=== PATIENT | female | born 1945 | race Caucasian/White ===

== ENCOUNTER 2017-10-24 11:49 | Observation (INO) | payer MEDICARE ==
[~2017-10-24] VITALS: Ht 162.6 cm; Wt 66.0 kg
[~2017-10-24 11:49] MED LIST: ACET-38 PO; ASCO500C15 PO; ASPI-1 PO; CALC-855 PO; CHOL10002 PO; CYAN-19 PO; HYDR25TA4 PO; IBUP-1984 PO; LOSA50TA37 PO; METO50TA16 PO; PANT40TA4 PO; POTA10CA44 PO; RESV250C2 PO
[2017-10-24 12:30] LABS: BASOPHILS % (AUTO) 0.9 % (0-1); EOSINOPHILS # (AUTO) 0.1 X10'3 (0-0.9); EOSINOPHILS % (AUTO) 2.9 % (0-6); HEMATOCRIT 37.7 % (35.0-45.0); HEMOGLOBIN 12.9 g/dl (12.0-16.0); LYMPHOCYTES % (AUTO) 23.7 % (21-51); MEAN CORPUSCULAR HEMOGLOBIN 32.9 PG (27.0-31.0); MEAN CORPUSCULAR HGB CONC 34.3 % (33.0-36.5); MEAN PLATELET VOLUME 6.9 FL (7.4-10.4); MONOCYTES # (AUTO) 0.6 X10'3 (0-0.9); MONOCYTES % (AUTO) 13.7 % (2-12); NEUTROPHILS # (AUTO) 2.6 X10'3 (1.8-7.7); NEUTROPHILS % (AUTO) 58.8 % (42-75); PLATELET COUNT 256 X10'3 (140-440); RED BLOOD COUNT 3.92 X10'6 (4.20-5.60); RED CELL DISTRIBUTION WIDTH 13.1 % (11.5-14.5); WHITE BLOOD COUNT 4.4 X10'3 (4.5-11.0)
[2017-10-24 12:40] LABS: PARTIAL THROMBOPLASTIN TIME 25 SECONDS (22-32); PROTHROMBIN TIME 10.2 SECONDS (9.0-12.0)
[2017-10-24 12:50] LABS: ALANINE AMINOTRANSFERASE 35 U/L (12-78); ALBUMIN 3.6 G/DL (3.4-5.0); ALBUMIN/GLOBULIN RATIO 1.2 (1.1-1.5); ALKALINE PHOSPHATASE 57 IU/L (46-116); ANION GAP 6 (8-16); ASPARTATE AMINO TRANSFERASE 26 U/L (10-37); BILIRUBIN,TOTAL 0.7 MG/DL (0.1-1.0); BLOOD UREA NITROGEN 13 MG/DL (7-18); BUN/CREATININE RATIO 12.7 (6.6-38.0); CALCIUM 8.9 MG/DL (8.5-10.1); CHLORIDE 98 MMOL/L (99-107); CREATININE 1.02 MG/DL (0.40-0.90); GLUCOSE 104 MG/DL (70-104); POTASSIUM 3.6 MMOL/L (3.5-5.1); SODIUM 134 MMOL/L (135-145); TOTAL CARBON DIOXIDE 29.7 MMOL/L (24-32); TOTAL PROTEIN 6.7 G/DL (6.4-8.2); eGFR 54 ML/MIN
[2017-10-24 12:53] LABS: MAGNESIUM 1.6 MG/DL (1.5-2.4)
[2017-10-24] MEDS ORDERED: AMOX-580 PO (13:19)
[2017-10-24] MEDS ORDERED: TEMA30CA5 PO (13:20)
[2017-10-24] MEDS ORDERED: ALPR-624 PO (13:20)
[2017-10-24] MEDS ORDERED: normal saline 1000ml 1,000 ML IV SCH (13:49)
[2017-10-24] MEDS ORDERED: mag hydrox/Alum hydrox/simeth 30ml oral suspension PO PRN (13:50)
[2017-10-24] MEDS ORDERED: acetaminophen 325mg tablet PO PRN ×2 (13:50)
[2017-10-24] MEDS ORDERED: ondansetron/PF 4mg/2ml inj IV PRN (13:50)
[2017-10-24] MEDS ORDERED: magnesium hydroxide 30ml (MOM) UD suspension PO PRN (13:50)
[2017-10-24] MEDS ORDERED: ibuprofen tablet 400 MG TABLET PO PRN (14:05)
[2017-10-24] MEDS ORDERED: temazepam 15mg capsule PO PRN (14:20)
[2017-10-24 16:30] VITALS: BP 129/70
[2017-10-24 19:00] VITALS: BP 124/61
[2017-10-24] MEDS ORDERED: ALPRAZolam 0.25mg tablet PO PRN (21:00)
[2017-10-24] MEDS: metoprolol tartrate 50mg tablet PO SCH (21:06)
[2017-10-24] MEDS: temazepam 15mg capsule PO PRN ×2 (21:06→22:51)
[2017-10-24 23:00] VITALS: BP 119/70
[2017-10-25 04:56] LABS: EOSINOPHILS # (AUTO) 0.1 X10'3 (0-0.9); EOSINOPHILS % (AUTO) 1.9 % (0-6); HEMATOCRIT 35.4 % (35.0-45.0); LYMPHOCYTES # (AUTO) 1.4 X10'3 (1.1-4.8); MEAN CORPUSCULAR HEMOGLOBIN 32.8 PG (27.0-31.0); MEAN CORPUSCULAR HGB CONC 33.8 % (33.0-36.5); MEAN CORPUSCULAR VOLUME 96.8 FL (78-98); MEAN PLATELET VOLUME 7.3 FL (7.4-10.4); MONOCYTES # (AUTO) 0.5 X10'3 (0-0.9); MONOCYTES % (AUTO) 11.1 % (2-12); NEUTROPHILS # (AUTO) 2.5 X10'3 (1.8-7.7); PLATELET COUNT 228 X10'3 (140-440); RED BLOOD COUNT 3.66 X10'6 (4.20-5.60); RED CELL DISTRIBUTION WIDTH 13.5 % (11.5-14.5); WHITE BLOOD COUNT 4.6 X10'3 (4.5-11.0)
[2017-10-25 05:16] LABS: ALBUMIN 3.2 G/DL (3.4-5.0); ANION GAP 7 (8-16); BLOOD UREA NITROGEN 11 MG/DL (7-18); BUN/CREATININE RATIO 13.8 (6.6-38.0); CALCIUM 8.6 MG/DL (8.5-10.1); CHLORIDE 103 MMOL/L (99-107); CHOL/HDL RATIO 1.6 (0.00-4.99); CHOLESTEROL 146 MG/DL (0-200); GLUCOSE 103 MG/DL (70-104); HDL CHOLESTEROL 90 MG/DL (35-60); LDL CHOLESTEROL 50 MG/DL (50-100); POTASSIUM 3.1 MMOL/L (3.5-5.1); SODIUM 137 MMOL/L (135-145); TOTAL CARBON DIOXIDE 27.1 MMOL/L (24-32); TRIGLYCERIDES 20 MG/DL (20-135); eGFR 71 ML/MIN
[2017-10-25 06:00] VITALS: BP 123/67
[2017-10-25] MEDS: metoprolol tartrate 50mg tablet PO SCH (08:00)
[2017-10-25] MEDS ORDERED: potassium chloride 10mEq ER tablet PO SCH (08:00)
[2017-10-25] MEDS ORDERED: HYDROchlorothiazide 25mg tablet PO SCH (08:00)
[2017-10-25] MEDS ORDERED: calcium carbonate/vitamin D3 tablet PO SCH (08:00)
[2017-10-25] MEDS ORDERED: losartan 50mg tablet PO SCH (08:00)
[2017-10-25] MEDS ORDERED: pantoprazole 40mg Tablet.DR PO SCH (08:00)
[2017-10-25] MEDS ORDERED: cyanocobalamin 500mcg tablet PO SCH (08:00)
[2017-10-25] MEDS ORDERED: potassium Cl 20 mEq SR tablet PO PRN (08:40)
[2017-10-25] MEDS ORDERED: potassium Cl 40MEQ/NS 500ml 500 ML IV PRN ×2 (08:40)
[2017-10-25] MEDS: potassium Cl 20 mEq SR tablet PO PRN ×2 (09:00→12:50)
[2017-10-25 11:00] VITALS: BP 157/66
== END 2017-10-25 13:00 | disposition home or self-care (01) ==
LOC: ER 11:50 → ED HOLD 13:49 → EDBEDREQ 15:49 → PCU 3S 16:48
PROVIDERS: ADMIT Hospitalist; ATTEND Hospitalist
DX: R07.89 Other chest pain (principal); R06.02 Shortness of breath; E87.1 Hypo-osmolality and hyponatremia; I35.1 Nonrheumatic aortic (valve) insufficiency; I34.0 Nonrheumatic mitral (valve) insufficiency; I07.1 Rheumatic tricuspid insufficiency; I37.1 Nonrheumatic pulmonary valve insufficiency; I10 Essential (primary) hypertension; I48.91 Unspecified atrial fibrillation; J44.9 Chronic obstructive pulmonary disease, unspecified; R42 Dizziness and giddiness; Z96.652 Presence of left artificial knee joint
CPT/HCPCS: 36415; 71045; 80048; 80053; 80061; 83735; 83880; 84484; 85025; 85610; 85730; 87070; 93306; 96360; 96361; 99285; G0378; J7030

== ENCOUNTER → 2022-01-12 | Emergency (ER) | payer MEDICARE ==
[~2022-01-12] VITALS: Ht 162.6 cm; Wt 65.0 kg
[~2022-01-12] MED LIST changes: +ALPR-624 PO; -ASCO500C15 PO; -ASPI-1 PO; -CALC-855 PO; -CYAN-19 PO; +CYAN-51 PO; -IBUP-1984 PO; -LOSA50TA37 PO; +LOSA50TA64 PO; -PANT40TA4 PO; +PANT40TA54 PO; -RESV250C2 PO; +TEMA30CA5 PO
[2022-01-12 17:39] VITALS: BP 123/77
== END | disposition home or self-care (01) ==
LOC: ER 16:09
DX: S60.211A Contusion of right wrist, initial encounter (principal); I11.9 Hypertensive heart disease without heart failure; J45.909 Unspecified asthma, uncomplicated; J44.9 Chronic obstructive pulmonary disease, unspecified; K21.9 Gastro-esophageal reflux disease without esophagitis; Z98.890 Other specified postprocedural states; Z88.8 Allergy status to other drugs, medicaments and biological substances; Z79.899 Other long term (current) drug therapy; W18.39XA Other fall on same level, initial encounter; Y93.89 Activity, other specified; Y92.89 Other specified places as the place of occurrence of the external cause; Y99.8 Other external cause status
CPT/HCPCS: 29125; 73110; 99284; A4565; A6449

== ENCOUNTER 2022-08-13 12:51 | Inpatient (IN) | payer MEDICARE, OTHER ==
[~2022-08-13] VITALS: Ht 162.6 cm; Wt 65.5 kg
[~2022-08-13 12:51] MED LIST changes: -POTA10CA44 PO; +POTA10CA45 PO
--- NOTE | 2022-08-13 13:05 | NUR ---
TO CT VIA [facility]
[2022-08-13 13:36] LABS: APTT 24 SECONDS (22-32)
[2022-08-13 13:37] LABS: ALANINE AMINOTRANSFERASE 26 U/L (12-78); ALBUMIN 3.8 G/DL (3.4-5.0); ALBUMIN/GLOBULIN RATIO 1.1 (1.1-1.5); ALKALINE PHOSPHATASE 59 IU/L (46-116); ANION GAP 6 (8-16); ASPARTATE AMINO TRANSFERASE 21 U/L (10-37); BILIRUBIN,TOTAL 0.4 MG/DL (0.1-1.0); BLOOD UREA NITROGEN 28 MG/DL (7-18); BUN/CREATININE RATIO 27.5 (10.0-20.0); CALCIUM 9.4 MG/DL (8.5-10.1); CHLORIDE 105 MMOL/L (99-107); CREATININE 1.02 MG/DL (0.40-0.90); GLUCOSE 102 MG/DL (70-104); POTASSIUM 4.7 MMOL/L (3.5-5.1); SODIUM 138 MMOL/L (135-145); TOTAL PROTEIN 7.2 G/DL (6.4-8.2); eGFR 53 ML/MIN
--- NOTE | 2022-08-13 14:15 | NUR ---
dr arrington to bedside. pt level 1 stroke
[2022-08-13] MEDS ORDERED: iohexol 350MG/ML 100ml bottle IV ONE (14:17)
[2022-08-13 14:34] LABS: BASOPHILS # (AUTO) 0.1 X10'3 (0-0.2); BASOPHILS % (AUTO) 0.9 % (0-1); EOSINOPHILS # (AUTO) 0.2 X10'3 (0-0.9); EOSINOPHILS % (AUTO) 4.4 % (0-6); HEMATOCRIT 36.5 % (35.0-45.0); HEMOGLOBIN 12.1 g/dl (12.0-16.0); LYMPHOCYTES # (AUTO) 1.3 X10'3 (1.1-4.8); MEAN CORPUSCULAR HEMOGLOBIN 31.9 PG (27.0-31.0); MEAN CORPUSCULAR HGB CONC 33.2 g/dL (33.0-36.5); MEAN CORPUSCULAR VOLUME 96.1 FL (78-98); MEAN PLATELET VOLUME 7.7 FL (7.4-10.4); MONOCYTES # (AUTO) 0.6 X10'3 (0-0.9); MONOCYTES % (AUTO) 11.1 % (2-12); NEUTROPHILS # (AUTO) 3.4 X10'3 (1.8-7.7); NEUTROPHILS % (AUTO) 60.6 % (42-75); PLATELET COUNT 271 X10'3 (140-440); RED BLOOD COUNT 3.79 X10'6 (4.20-5.60); RED CELL DISTRIBUTION WIDTH 12.9 % (11.5-14.5); WHITE BLOOD COUNT 5.7 X10'3 (4.5-11.0)
--- NOTE | 2022-08-13 14:34 | NUR ---
Arrived for a level 1 stroke alert to bed #15 and pt was still at CT. When she arrived back to her room I did assessment and did not find any specefic findings. She said she still feels a little slow in speech and not quite back to normal. Telemedicine machine is in room ready for evaluation.
--- NOTE | 2022-08-13 14:40 | NUR ---
Stroke RN at bedside.
--- NOTE | 2022-08-13 14:55 | NUR ---
Around this time Teleneurology eval was done and pt gave permission for evaluation. Dr. Stein will talt to ER doctor about his reommendations.
--- NOTE | 2022-08-13 15:23 | NUR ---
Report given to Allison about my documentation and the findings of CTA report and CT. She passed her swallow evaluation too.
[2022-08-13] MEDS ORDERED: LORazepam 2 mg/ml vial IV ONE (15:50)
[2022-08-13] MEDS ORDERED: aspirin 81mg tab.chew PO ONE (15:55)
[2022-08-13] MEDS ORDERED: clopidogrel 300mg tablet PO ONE (16:00)
[2022-08-13] MEDS ORDERED: ondansetron/PF 4mg/2ml inj IV PRN (16:00)
[2022-08-13] MEDS ORDERED: mag hydrox/Alum hydrox/simeth 30ml oral suspension PO PRN (16:00)
[2022-08-13] MEDS ORDERED: acetaminophen 325mg tablet PO PRN (16:00)
[2022-08-13] MEDS ORDERED: magnesium hydroxide 30ml (MOM) UD suspension PO PRN (16:00)
[2022-08-13] MEDS ORDERED: morphine 2 MG/ML inj. syringe IV PRN ×2 (16:00)
[2022-08-13 16:51] LABS: CHOL/HDL RATIO 1.7 (0.00-4.99); CHOLESTEROL 171 MG/DL (0-200); HDL CHOLESTEROL 100 MG/DL (35-60); LDL CHOLESTEROL 60 MG/DL (50-100)
[2022-08-13 17:18] LABS: TRIGLYCERIDES < 15 MG/DL (20-135)
[2022-08-13] MEDS ORDERED: SPIR25TA5 PO (17:49)
[2022-08-13] MEDS ORDERED: LOP12.5T PO (17:49)
--- NOTE | 2022-08-13 19:28 | NUR ---
mri screening sheet faxed
[2022-08-13 21:35] VITALS: BP 145/83
[2022-08-13] MEDS: apixaban 5mg tablet PO SCH (22:00)
[2022-08-13] MEDS: docusate sod 100mg capsule PO SCH (22:01)
[2022-08-14] VITALS (8 sets, daily range): BP systolic 122–172; BP diastolic 71–94
[2022-08-14] MEDS: acetaminophen 325mg tablet PO PRN ×2 (01:43→16:00)
--- NOTE | 2022-08-14 06:35 | NUR ---
Patient in room ORTHO 4010. I have received report from CASSIE JACKSON, and had the opportunity to ask questions and assume patient care.
[2022-08-14 07:37] LABS: BASOPHILS # (AUTO) 0.1 X10'3 (0-0.2); BASOPHILS % (AUTO) 0.8 % (0-1); EOSINOPHILS # (AUTO) 0.2 X10'3 (0-0.9); EOSINOPHILS % (AUTO) 2.5 % (0-6); HEMATOCRIT 35.3 % (35.0-45.0); LYMPHOCYTES # (AUTO) 1.5 X10'3 (1.1-4.8); LYMPHOCYTES % (AUTO) 20.7 % (21-51); MEAN CORPUSCULAR HEMOGLOBIN 32.6 PG (27.0-31.0); MEAN CORPUSCULAR HGB CONC 34.1 g/dL (33.0-36.5); MEAN CORPUSCULAR VOLUME 95.8 FL (78-98); MEAN PLATELET VOLUME 7.3 FL (7.4-10.4); MONOCYTES # (AUTO) 0.6 X10'3 (0-0.9); MONOCYTES % (AUTO) 8.9 % (2-12); NEUTROPHILS # (AUTO) 4.8 X10'3 (1.8-7.7); NEUTROPHILS % (AUTO) 67.1 % (42-75); PLATELET COUNT 258 X10'3 (140-440); RED BLOOD COUNT 3.68 X10'6 (4.20-5.60); RED CELL DISTRIBUTION WIDTH 12.7 % (11.5-14.5); WHITE BLOOD COUNT 7.1 X10'3 (4.5-11.0)
[2022-08-14] MEDS: docusate sod 100mg capsule PO SCH (07:47)
[2022-08-14] MEDS: apixaban 5mg tablet PO SCH (07:48)
[2022-08-14 07:53] LABS: ALBUMIN 3.6 G/DL (3.4-5.0); ANION GAP 6 (8-16); BLOOD UREA NITROGEN 23 MG/DL (7-18); BUN/CREATININE RATIO 24.7 (10.0-20.0); CALCIUM 9.3 MG/DL (8.5-10.1); CHLORIDE 104 MMOL/L (99-107); CREATININE 0.93 MG/DL (0.40-0.90); GLUCOSE 109 MG/DL (70-104); POTASSIUM 3.8 MMOL/L (3.5-5.1); SODIUM 139 MMOL/L (135-145); TOTAL CARBON DIOXIDE 28.7 MMOL/L (24-32); eGFR 59 ML/MIN
[2022-08-14] MEDS ORDERED: aspirin 325mg tablet, delayed-release (Ecotrin) PO SCH (08:00)
[2022-08-14] MEDS ORDERED: enoxaparin 40mg/0.4ml syringe SUBCUT SCH (08:00)
--- NOTE | 2022-08-14 10:51 | NUR ---
PAGER ID: [phone] MESSAGE: [id number], QUINN BELTRAN, MRI RESULTED, POSITIVE CEREBELLUR INFARCT. PT ORDER PLEASE. THANK YOU, SHMUEL
[2022-08-14 11:23] LABS: HEMOGLOBIN A1C 5.5 % (4.5-6.2)
--- NOTE | 2022-08-14 11:52 | NUR ---
PAGE SENT PAGER ID: [phone] MESSAGE: [id number], QUINN BELTRAN, LAB RESULTS WNL, PASSED PT. THANK YOU, SHMUEL [phone]
--- NOTE | 2022-08-14 13:50 | NUR ---
Page sent PAGER ID: [phone] MESSAGE: [id number] Reji Hancock, received orders for d/c. Is patient ready for dc? Thank you, Loree MATTHEWS [phone]
--- NOTE | 2022-08-14 13:58 | NUR ---
page sent PAGER ID: [phone] MESSAGE: [id number], Le Mendoza, There appears to be medications that are contraindicated for use with Eliquis. Thank you, Loree, [phone]
--- NOTE | 2022-08-14 14:22 | NUR ---
[age sent PAGER ID: [phone] MESSAGE: [id number], Le Mendoza, Please call concerning discharge. Pt's family is here. Thank you, Loree [phone]
--- NOTE | 2022-08-14 14:35 | NUR ---
page sent PAGER ID: [phone] MESSAGE: [id number], Edinson Walsh I missed your call. I still have "conflict" on med orders in dc paperwork. Thank you, Loree [phone]
--- NOTE | 2022-08-14 14:41 | NUR ---
UNABLE TO PRINT DISCHARGE PACKET UNABLE TO FINALIZE MEDICATIONS. CONTACTED MD, SEVERAL APPROACHES WERE TRIED. PROVIDER ASKED THIS NURSE TO PHONE IN ELIQUIS PRESCRIPTION SO THINGS CAN BE FINALIZED.
--- NOTE | 2022-08-14 14:56 | NUR ---
PAGE SENT PAGER ID: [phone] MESSAGE: [id number], DOUGIE FRANCO TO REPORT THAT I STILL SEE THE ELIQUIS AND "CONFLICT". THANK YOU, SHMUEL [phone]
[2022-08-14] MEDS ORDERED: APIX5TAB3 PO (15:04)
--- NOTE | 2022-08-14 15:35 | NUR ---
Dr Ang called and is having problems transmitting Eliquis RX to pharmacy for patient discharge. I called and Spoke to [facility] pharmacy and Spoke to the pharmacist Sunitha Eliquis 5 mg PO BID #60 no refills. All has been called in.
--- NOTE | 2022-08-14 16:03 | NUR ---
PT REPORTED 6/10 PAIN, AND REQUESTED TYLENOL. TYLENOL GIVEN.
--- NOTE | 2022-08-14 16:27 | NUR ---
Student documentation: I have reviewed and agree with all interventions, assessments performed and documented by CASSIE MI. Student Medication Administration: For this medication-pass time frame, all medication were reviewed, dispensed, administered and documented per hospital policy by CASSIE MI.
--- NOTE | 2022-08-14 17:19 | NUR ---
PT STABLE FOR DISCHARGE PER MD. DISCHARGE AND FOLLOW UP INSTRUCTIONS REVIEWED WITH PT, AND BELONGINGS RETURNED TO PT. TELE BOX REMOVED. PIV REMOVED WITH TIP INTACT. PAPERWORK SIGNED BY PT. PT TRANSFERRED TO PRIVATE VEHICLE BY HOSPITAL STAFF. PT DISCHARGED TO HOME.
== END 2022-08-14 17:00 | disposition home health service (06) | DRG 66 ==
LOC: ER 12:51 → ED HOLD 16:04 → ORTHO 4S 20:21
PROVIDERS: ADMIT Internal Medicine; ATTEND Internal Medicine
PROC: B3251ZZ Computerized Tomography (CT Scan) of Bilateral Common Carotid Arteries using Low Osmolar Contrast (ICD-10-PCS; principal; 2022-08-13)
PROC: B32G1ZZ Computerized Tomography (CT Scan) of Bilateral Vertebral Arteries using Low Osmolar Contrast (ICD-10-PCS; 2022-08-13)
PROC: B32R1ZZ Computerized Tomography (CT Scan) of Intracranial Arteries using Low Osmolar Contrast (ICD-10-PCS; 2022-08-13)
PROC: B3281ZZ Computerized Tomography (CT Scan) of Bilateral Internal Carotid Arteries using Low Osmolar Contrast (ICD-10-PCS; 2022-08-13)
DX: I63.89 Other cerebral infarction (principal); I48.0 Paroxysmal atrial fibrillation; R47.01 Aphasia; Z96.659 Presence of unspecified artificial knee joint; F41.9 Anxiety disorder, unspecified; K21.9 Gastro-esophageal reflux disease without esophagitis; G47.00 Insomnia, unspecified; R27.9 Unspecified lack of coordination; R47.1 Dysarthria and anarthria; I10 Essential (primary) hypertension; J44.9 Chronic obstructive pulmonary disease, unspecified; Z79.01 Long term (current) use of anticoagulants; Z83.3 Family history of diabetes mellitus; Z88.8 Allergy status to other drugs, medicaments and biological substances; Z56.0 Unemployment, unspecified; Z79.899 Other long term (current) drug therapy
CPT/HCPCS: 36415; 70450; 70496; 70498; 70551; 71045; 80048; 80053; 80061; 83036; 83880; 84443; 85025; 85610; 85651; 85730; 86885; 86900; 86901; 87081; 93005; 93306; 97110; 97161; 97530; 99285; A4353; G0378; J2060; J2270; J3490; Q9967

== ENCOUNTER 2024-04-20 09:26 | Emergency (ER) | payer MEDICARE, OTHER ==
[~2024-04-20] VITALS: Ht 162.6 cm; Wt 61.8 kg
[~2024-04-20 09:26] MED LIST changes: -ALPR-624 PO; +CYAN-104 PO; -CYAN-51 PO; -HYDR25TA4 PO; +LOP12.5T PO; -METO50TA16 PO; -POTA10CA45 PO; +POTA10CA95 PO; +SPIR25TA5 PO; -TEMA30CA5 PO
[2024-04-20 09:29] VITALS: TEMP 97.9
[2024-04-20 11:20] VITALS: BP 132/59; PULSE 79; RESP 14; O2SAT 98
== END 2024-04-20 11:22 | disposition home or self-care (01) ==
LOC: ER 09:27
DX: R09.89 Other specified symptoms and signs involving the circulatory and respiratory systems (principal); T17.228A Food in pharynx causing other injury, initial encounter; I48.91 Unspecified atrial fibrillation; I10 Essential (primary) hypertension; K21.9 Gastro-esophageal reflux disease without esophagitis; J44.9 Chronic obstructive pulmonary disease, unspecified; J45.909 Unspecified asthma, uncomplicated; Z98.890 Other specified postprocedural states; Z56.0 Unemployment, unspecified; Z88.8 Allergy status to other drugs, medicaments and biological substances; Z72.89 Other problems related to lifestyle; Z79.899 Other long term (current) drug therapy; W44.F3XA Food entering into or through a natural orifice, initial encounter; Y93.89 Activity, other specified; Y92.89 Other specified places as the place of occurrence of the external cause; Y99.8 Other external cause status
CPT/HCPCS: 70490; 99284